=== PATIENT | female | born 1945 | race Caucasian/White ===

== ENCOUNTER 2018-01-31 08:20 | Day surgery (SDC) | payer MEDICARE, OTHER ==
[2018-01-31 09:27] LABS: ADD MAN DIFF? NO
[2018-01-31 09:29] LABS: WHITE BLOOD COUNT 6.1 10^3/ul (4.8-10.8)
[2018-01-31 09:29] LABS: BASOPHILS % 0.5 % (0.0-2.0); EOSINOPHILS # 0.1 10^3/ul (0.0-0.5); EOSINOPHILS % 1.1 % (0.0-7.0); HEMATOCRIT 37.2 % (37.0-47.0); HEMOGLOBIN 12.8 g/dl (12.0-16.0); LYMPHOCYTES # 0.9 10^3/ul (0.8-2.9); LYMPHOCYTES % 14.2 % (15.0-51.0); MEAN CORPUSCULAR HEMOGLOBIN 33.1 pg (29.0-33.0); MEAN CORPUSCULAR HGB CONC 34.4 g/dl (32.0-37.0); MEAN CORPUSCULAR VOLUME 96.1 fl (82.0-101.0); MEAN PLATELET VOLUME 9.4 fl (7.4-10.4); MONOCYTE # 0.5 10^3/ul (0.3-0.9); MONOCYTES % 7.9 % (0.0-11.0); NEUTROPHIL # 4.7 10^3/ul (1.6-7.5); NEUTROPHILS % 76.1 % (39.0-77.0); PLATELET COUNT 234 10^3/UL (140-415); RED BLOOD COUNT 3.87 10^6/ul (4.20-5.40); RED CELL DISTRIBUTION WIDTH 12.3 % (11.5-14.5)
[2018-01-31 09:50] LABS: ANION GAP 16 (8-16); CARBON DIOXIDE 25 mmol/L (21-31); CHLORIDE 109 mmol/L (97-110); CHOL/HDL RATIO 2.2 RATIO; CHOLESTEROL 127 mg/dl (100-200); GLUCOSE 93 mg/dl (70-220); HDL CHOLESTEROL 57 mg/dl (33-92); LDL CHOLESTEROL,CALCULATED 57 mg/dl; TRIGLYCERIDES 63 mg/dl (0-149)
[2018-01-31 09:53] LABS: POTASSIUM 3.7 mmol/L (3.5-5.1)
[2018-01-31 09:55] LABS: BLOOD UREA NITROGEN 23 mg/dl (7-20); CREATININE 0.69 mg/dl (0.44-1.00); SODIUM 146 mmol/L (135-144)
[2018-01-31 10:00] LABS: INR 0.93; PARTIAL THROMBOPLASTIN TIME 28.6 Sec (25.0-35.0); PROTIME 12.6 Sec (11.9-14.9)
[2018-01-31] MEDS ORDERED: IODIXANOL LOCM 100 ML BTL (10:40)
[2018-01-31] MEDS ORDERED: LIDOCAINE 1% (MDV) 20 ML INJ (10:40)
[2018-01-31] MEDS ORDERED: MIDAZOLAM 1 MG/ML 2 ML INJ (10:40)
[2018-01-31] MEDS ORDERED: FENTAnyl 50 MCG/ML VIAL (10:40)
[2018-01-31] MEDS ORDERED: SOD CHLORIDE 0.9% 1,000 ML IV (11:40)
[2018-01-31] MEDS ORDERED: morphine 2 MG INJ IV (12:00)
[2018-01-31] MEDS ORDERED: ONDANSETRON 4 MG INJ IV (12:00)
[2018-01-31] MEDS ORDERED: ACETAMINOPHEN 325 MG TAB PO (12:00)
[2018-01-31] MEDS ORDERED: AL HYDROX/MG HYDROX/SIMETH 30 ML CUP PO (12:00)
== END 2018-01-31 18:15 | disposition home or self-care (01) ==
LOC: SDS 08:20
DX: I73.9 Peripheral vascular disease, unspecified (principal); L97.929 Non-pressure chronic ulcer of unspecified part of left lower leg with unspecified severity; I10 Essential (primary) hypertension; E78.5 Hyperlipidemia, unspecified; E78.00 Pure hypercholesterolemia, unspecified; Z79.82 Long term (current) use of aspirin
CPT/HCPCS: 36200; 71045; 75710; 80048; 80061; 85025; 85610; 85730; 93005; 93926